=== PATIENT | male | born 1960 | race Caucasian/White ===

== ENCOUNTER → 2016-05-19 | Outpatient (CLI) | payer OTHER | LOC: CT 07:53 | DX: I15.0 Renovascular hypertension (principal); I20.8 Other forms of angina pectoris; I70.0 Atherosclerosis of aorta; I70.8 Atherosclerosis of other arteries; I70.202 Unspecified atherosclerosis of native arteries of extremities, left leg | CPT/HCPCS: 36415; 75635; 82565; 84520; J7050; Q9963 ==

== ENCOUNTER → 2016-06-12 | Outpatient (CLI) | payer OTHER | LOC: HEART 5 14:31 | DX: J44.9 Chronic obstructive pulmonary disease, unspecified (principal); F17.210 Nicotine dependence, cigarettes, uncomplicated; R94.2 Abnormal results of pulmonary function studies | CPT/HCPCS: 94060; 94729 ==